=== PATIENT | female | born 1940 ===

== ENCOUNTER 2017-06-17 09:18 | Outpatient (CLI) | payer OTHER ==
[~2017-06-17 09:18] MED LIST: ULTRACET PO; XARELTO 10MG PO; ZIAC 2.5-6.25 M1 TAB PO; [UNRECOGNIZED DRUG - OTHER]
== END 2017-06-17 09:31 | disposition home or self-care (01) ==
LOC: LAB 09:18
DX: D50.0 Iron deficiency anemia secondary to blood loss (chronic) (principal); E78.2 Mixed hyperlipidemia; N39.0 Urinary tract infection, site not specified; R82.79 Other abnormal findings on microbiological examination of urine; B96.20 Unspecified Escherichia coli [E. coli] as the cause of diseases classified elsewhere; E11.29 Type 2 diabetes mellitus with other diabetic kidney complication; Z13.1 Encounter for screening for diabetes mellitus; Z13.29 Encounter for screening for other suspected endocrine disorder; Z12.11 Encounter for screening for malignant neoplasm of colon